=== PATIENT | female | born 1985 | race African-American/Black ===

== ENCOUNTER 2017-05-07 19:17 | Emergency (ER) | payer MEDICAID ==
[~2017-05-07] VITALS: Ht 165.1 cm; Wt 67.1 kg
[2017-05-07 21:17] LABS: BASOPHIL % 0.2 % (0-2); PLATELET COUNT 186 x10^3mcL (130-400)
[2017-05-07 21:18] LABS: RED CELL DISTRIBUTION WIDTH 14.8 % (11.5-14.5)
[2017-05-07 23:18] VITALS: BP 116/69
[2017-05-07 23:23] LABS: UA SPECIFIC GRAVITY 1.015 (1.005-1.035); microscopic required? YES; urine erythrocyte 3+ (NEGATIVE)
== END 2017-05-07 23:18 | disposition home or self-care (01) ==
LOC: ED 19:17
PROVIDERS: Specialist
DX: O20.0 Threatened abortion (principal); Z3A.01 Less than 8 weeks gestation of pregnancy
CPT/HCPCS: 36415